=== PATIENT | male | born 1990 | race Caucasian/White ===

== ENCOUNTER 2022-03-15 21:57 | Emergency (ER) | payer BC ==
[~2022-03-15] VITALS: Ht 185.4 cm; Wt 93.0 kg
== END 2022-03-16 02:02 | disposition home or self-care (01) ==
LOC: ED 21:57
DX: S00.83XA Contusion of other part of head, initial encounter (principal); W18.39XA Other fall on same level, initial encounter; Y93.89 Activity, other specified; Y92.89 Other specified places as the place of occurrence of the external cause; Y99.8 Other external cause status